=== PATIENT | female | born 1995 | race Caucasian/White ===

== ENCOUNTER 2018-07-28 16:18 | Emergency (ER) | payer OTHER ==
--- NOTE | 2018-07-28 16:43 | EDPHY ---
H & P Time Seen by Provider: 07/28/18 16:27 HPI/ROS: CHIEF COMPLAINT: Sudden onset rapid heart rate HISTORY OF PRESENT ILLNESS: Otherwise healthy 22-year-old woman presents with her father. She was exercising today, doing her typical workout. This consisted initially of hitting the punching bag for 5 rounds followed by doing some kicks and then doing 10 second wind sprints. During the sprints she felt sudden onset of rapid heart rate which she thought was around 200 beats per minute which lasted 3-5 minutes and then resolved. Not associated with chest pain or shortness of breath, did not have syncope or near syncope. Symptoms have now resolved. REVIEW OF SYSTEMS: Eye: no change in vision ENT: no sore throat Cardiac: no chest pain or syncope Pulmonary: no cough or SOB Abdomen: no vomiting, diarrhea, abdominal pain Musculoskeletal: No leg swelling Skin: no rash Neuro: no headache Constitutional: no fever : no urinary symptoms A comprehensive 10 point review of systems is otherwise negative aside from elements mentioned in the history of present illness. PAST MEDICAL HISTORY: Anxiety and depression on mirtazapine Family history: Negative for dysrhythmia or venous thromboembolism. Social history: Here with her father, mother is a physician. No recent travel or immobilization. General Appearance: Alert and conversant, cooperative. Eyes: No scleral icterus. ENT, Mouth: Normal mucous membranes. Respiratory: Normal respiratory effort, breath sounds equal, lungs are clear to auscultation. Cardiovascular: Regular rate and rhythm. No murmur. Specifically no murmur heard in the axilla. Gastrointestinal: Abdomen is soft and non tender. Neurological: Alert, face symmetric, normal motor and sensory in extremities. Skin: Warm and dry, no rashes. Musculoskeletal: No calf tenderness. Psychiatric: Not agitated. Emergency Department course/MDM: Patient's EKG shows normal intervals and does not have evidence of Sayra- Parkinson-White syndrome. Her physical exam does not suggest the presence of valvular disease. I think pulmonary embolism or ACS are unlikely. She is placed on a monitor, electrolytes checked. I think SVT would be the most likely, also considered other tachy dysrhythmias including but not limited to ventricular tachycardia, atrial fibrillation, AVNRT. 1741: Results discussed, monitor reviewed, no dysrhythmias seen. Cardiology follow-up. Patient and father state they are in agreement with the plan. Smoking Status: Never smoked Constitutional: Initial Vital Signs Temperature (C) 36.7 C 07/28/18 16:21 Heart Rate 87 07/28/18 16:21 Respiratory Rate 16 07/28/18 16:21 Blood Pressure 131/78 H 07/28/18 16:21 O2 Sat (%) 100 07/28/18 16:21 O2 Delivery Mode Room Air Allergies/Adverse Reactions: No Known Allergies Allergy (Unverified 07/28/18 16:25) Home Medications: Medication Instructions Recorded MIRTAZAPINE 07/28/18 Medical Decision Making - Diagnostics EKG Interpretation: 12-lead EKG interpreted by me; official reading is in computer system. My interpretation is sinus rhythm with borderline right axis, early repolarization. Otherwise normal intervals. No evidence of WPW or delta wave. - Data Points Laboratory Results: Laboratory Results 07/28/18 16:45 07/28/18 16:45 07/28/18 07/28/18 07/28/18 16:45 16:45 16:45 WBC 3.69 10^3/uL L 10^3/uL (3.80-9.50) RBC 4.63 10^6/uL 10^6/uL (4.18-5.33) Hgb 13.9 g/dL g/dL (12.6-16.3) Hct 40.1 % % (38.0-47.0) MCV 86.6 fL fL (81.5-99.8) MCH 30.0 pg pg (27.9-34.1) MCHC 34.7 g/dL g/dL (32.4-36.7) RDW 12.2 % % (11.5-15.2) Plt Count 221 10^3/uL 10^3/uL (150-400) MPV 10.1 fL fL (8.7-11.7) Neut % (Auto) 48.2 % % (39.3-74.2) Lymph % (Auto) 38.8 % % (15.0-45.0) Gilliam % (Auto) 10.8 % % (4.5-13.0) Eos % (Auto) 1.1 % % (0.6-7.6) Baso % (Auto) 0.8 % % (0.3-1.7) Nucleat RBC Rel Count 0.0 % % (0.0-0.2) Absolute Neuts (auto) 1.78 10^3/uL 10^3/uL (1.70-6.50) Absolute Lymphs (auto) 1.43 10^3/uL 10^3/uL (1.00-3.00) Absolute Monos (auto) 0.40 10^3/uL 10^3/uL (0.30-0.80) Absolute Eos (auto) 0.04 10^3/uL 10^3/uL (0.03-0.40) Absolute Basos (auto) 0.03 10^3/uL 10^3/uL (0.02-0.10) Absolute Nucleated RBC 0.00 10^3/uL 10^3/uL (0-0.01) Immature Gran % 0.3 % % (0.0-1.1) Immature Gran # 0.01 10^3/uL 10^3/uL (0.00-0.10) Sodium 138 mEq/L mEq/L (135-145) Potassium 3.9 mEq/L mEq/L (3.3-5.0) Chloride 107 mEq/L mEq/L (97-110) Carbon Dioxide 23 mEq/l mEq/l (22-31) Anion Gap 8 mEq/L mEq/L (6-14) BUN 15 mg/dL mg/dL (7-23) Creatinine 0.7 mg/dL mg/dL (0.6-1.0) Estimated GFR > 60 Glucose 99 mg/dL mg/dL (70-100) Calcium 9.6 mg/dL mg/dL (8.5-10.4) Beta HCG, Qual NEGATIVE Departure - Departure Disposition: Home, Routine, Self-Care Clinical Impression: Palpitations Condition: Good Instructions: Heart Palpitations (ED) Referrals: Martinez Caballero MD [Medical Doctor] - As per Instructions (Follow-up with this service and repair supervisor who is an electrophysiologic specialist, in the office next week.)
--- NOTE | 2018-07-28 16:46 | CPEKG ---
Test Reason : OPEN Blood Pressure : / mmHG Vent. Rate : 083 BPM Atrial Rate : 079 BPM P-R Int : 149 ms QRS Dur : 083 ms QT Int : 379 ms P-R-T Axes : 069 101 036 degrees QTc Int : 446 ms Sinus rhythm Borderline right axis deviation ST elev, probable normal early repol pattern Confirmed by Michael Siegel ([id number]) on 07/28/2018 4:45:27 PM Referred By: Confirmed By:Michael Siegel
[2018-07-28 17:07] LABS: PLATELET COUNT 221 10^3/uL (150-400)
[2018-07-28 17:52] VITALS: BP 125/80
== END 2018-07-28 17:52 | disposition home or self-care (01) ==
DX: R00.2 Palpitations (principal); F41.9 Anxiety disorder, unspecified; Z79.899 Other long term (current) drug therapy